=== PATIENT | male | born 1995 | race Caucasian/White ===

== ENCOUNTER 2024-09-21 17:51 | Emergency (ER) | payer BC, SELFPAY ==
--- OUTSIDE RECORDS SUMMARY | 2011-07-11 19:00 | XMS_ITS | Continuity of Care Document ---
[facility] Address [address] [place] [phone] Phone Care Team Providers Care Envelope Stamping Machine Operator Name Role Phone Gretchen Garza Unavailable Unavailable Advance Directives Directive Yes / No Effective Date File Name No Information Encounters Encounter Description Practice Location Reason(s) For Visit Diagnoses Date Provider Providers [facility] [address] [facility], [place], [place], [id number], [place] tel:[phone] [address] [place] [address] No Information 2 Charis Godinez. [address] [facility], [address], [place], [place], [id number], [place]. tel:[phone] Family History Family Member Type Diagnosis Age At Onset No Information Payers Payer name Insurance type Covered constitution party ID Authoriza tion(s) No Information Social History Type Description Quantity Date Captured Comments Sex Male Smoking Status No Information Chief Complaint And Reason For Visit No Information Reason For Referral Reason For Referral No Information History Of Present Illness Encounter Date Complaint History Of Prese nt Illness No Information Functional Status Date Functional Assessmen t No Information Instructions Date Instruction Additional Infor mation No Information Assessments Type Assessment Date No Information Patient Care Teams Name Effective Dates (start - stop) Status Members No Information
--- OUTSIDE RECORDS SUMMARY | 2021-07-10 10:15 | XMS_ITS | Continuity of Care Document ---
Author Organization [facility] Address [address] [facility] [place] [address] Phone Care Team Providers Care Applied Anthropologist Name Role Phone Mary GUTIERRES, Dayanna Unavailable Unavailable Allergies, Adverse Reactions, Alerts Substance Reaction Status Criticality No Known Allergies Active No Inform ation Medications Medication Instructions Dosage Effective Dates (start - stop) Status Comments Adderall 5 mg tablet take 1 tablet by oral route 2 times every day before breakfast and at noon 5 MG - Active azithromycin 500 mg tablet take 2 tablets (1000mg) by oral route today - No Longer Active Procedures Procedure Date OFFICE/OUTPATIENT VISIT, EST OFFICE/OUTPATIENT VISIT, NEW Advance Directives Directive Yes / No Effective Date File Name No Information Encounters Encounter Description Practice Location Reason(s) For Visit Diagnoses Date Provider Providers Copied on Encounter OFFICE/OUTPAT IENT VISIT, EST [facility], [address] [place], [place], [id number], [place] tel:[phone] [facility] Chlamydia Testing/Moustapha atment (chief complaint) High risk heterosexual behavior 2 Mary Alan. [address] [place] [address], [id number] , [place]. tel:[phone] Referring Provider: Dayanna Hernandez, [address] [place] [address], [address] . tel:[phone] OFFICE/OUTPAT IENT VISIT, NEW [facility], [facility] [place], [place], [id number], [place] tel:[phone] [facility] cold symptoms (chief complaint) Allergic rhinitis 2 Mary Alan. [address] [place], [place], [id number] , . tel:[phone] Referring Provider: Dayanna Hernandez, [address] [place], [address] . tel:[phone] Family History Family Member Type Diagnosis Age At Onset No Information Payers Payer name Insurance type Covered green party ID Authoriza tidel(s) [facility] [id number] BL [id number] Social History Type Description Quantity Date Captured Comments Alcohol Use Details Unknown Caffeine Use Details Unknown Tobacco Use Status No Information Smoking Status No Information Sex Male Vital Signs Date / Time: Height Weight BMI Pulse Rate Blood Pressure Temperature Respiratory Rate Body Surface Area Head Circumference Head Circ. Percentile Wt./Kendall. Percentile BMI percentile Pulse Ox Inhaled Ox 3:39 PM 72.00 in 92.533 kg (204.00 lbs) 27.6 7 kg/m eter (2) 105 /min 118/70 mm[Hg] 98.20 F 16 /min 98 % Chief Complaint And Reason For Visit From encounter dated '07/10/2021 15:15'. Chlamydia Testing/Treatment (chief complaint). Description: The symptoms began 2 months ago and generally lasts 2 Months. The symptoms are reported as being moderate. The symptoms occur daily. He states the symptoms are acute. Patient reported to urgent care for possible Chlamydia testing / treatment. Reported having sexual intercourse with someone in early May on 2021 who had tested positive for Chlamydia. Patient reported being tested today at [facility] but did not want to wait for the testing results prior to treatment. Patient denied any and all S/S consistent with STD infection. No other complaints and afebrile. Reason For Referral Reason For Referral No Information History Of Present Illness Encounter Date Complaint History Of Prese nt Illness Chlamydia Testing/Treatment The symptoms began 2 months ago and generally lasts 2 Months. The symptoms are reported as being moderate. The symptoms occur daily. He states the symptoms are acute. Patient reported to urgent care for possible Chlamydia testing / treatment. Reported having sexual intercourse with someone in early May on 2021 who had tested positive for Chlamydia. Patient reported being tested today at [facility] but did not want to wait for the testing results prior to treatment. Patient denied any and all S/S consistent with STD infection. No other complaints and afebrile. cold symptoms Onset: 2 Days. T he severity of the problem is mild. The problem has worsened. The symptoms are persistent. The patient denies aggravating factors. The patient denies relieving factors. Associated symptoms include cough, nasal congestion, otalgia, postnasal drainage and sinus pressure. Pertinent negatives include chills/rigors, dyspnea, facial pain, fatigue, fever, headache, hemoptysis, myalgia, pharyngitis, rash, rhinitis, sputum, tooth pain, wheezing or sneezing. Functional Status Date Functional Assessmen t Pain Score 0/10 Instructions Date Instruction Additional Infor julius --Azithromycin 1 g p .o. x1 --refrain from intercourse x1 week--Return to clinic as needed Related to High risk heterosexual behavior --Zyrtec daily and F lonase daily--Motrin or Tylenol as needed--Increase fluids and rest--Afrin, Sudafed, and Vicks VapoRub as needed--Return to clinic if today symptoms worsen or if new concerning symptoms present Related to Allergic rhinitis Assessments Type Assessment Date assessment High risk heterosexual behavior impression 26-year-old male pre sents to urgent care with concerns of exposure to chlamydia. Patient reports that he was notified recently of a partner that has chlamydia. Patient went to the [facility] today, was tested for chlamydia, but is refusing to wait for his results for treatment. Patient denies any current STI/UTI symptoms. Patient denies any prior history of STIs. Patient reports to partners, unprotected intercourse over the last 6 months. Upon exam, lungs clear throughout all rajan, heart regular, abdomen soft and nontender to palpation Mental Status Date Cognitive Assessment Orientation - [place] ed to time, place, person, situation. Patient Care Teams Name Effective Dates (start - stop) Status Members No Information
--- OUTSIDE RECORDS SUMMARY | 2024-02-17 05:45 | XMS_ITS | Continuity of Care Document ---
Author Organization [facility] Address [address] [place] [address] Phone Care Team Providers Care Supervisor Billposting Name Role Phone Billie Gibson Unavailable Unavailable Allergies, Adverse Reactions, Alerts Substance Reaction Status Criticality No Known Allergies Active No Inform ation Medications Medication Instructions Dosage Effective Dates (start - stop) Status Comments Truvada 200 mg-300 mg tablet take 1 tablet by oral route every day 1.00 tablet - Active Isentress 400 mg tablet take 1 tablet by oral route 2 times every day 400 MG - Active Procedures Procedure Date OFFICE/OUTPATIENT VISIT, EST OFFICE/OUTPATIENT VISIT, NEW Treatment Plan Completed Pt To Be Place On Recall Dental Prophylaxis Adult Periodontal Risk Assessment Caries Risk Assess & Doc Low Risk Oral Cancer Risk Assessment Comprehensive Oral Evaluation-New/Est Pt Intra-Oral - Complete Series Of Radiogra phic Images Dental Panoramic Radiographic Image Advance Directives Directive Yes / No Effective Date File Name No Information Encounters Encounter Description Practice Location Reason(s) For Visit Diagnoses Date Provider Providers Copied on Encounter [facility], [address], [place], [place], [id number] , [place] tel:[phone] [facility] No Information Karli Wise. [address], [place], [place], [id number], . tel:[phone] OFFICE/OUTPA TIENT VISIT, EST [facility], [address], [place], [place], [id number] , tel:[phone] [facility] needle stick (chief complaint) Contact with hypodermic needle, subsequent encounterEncount er for other specified prophylactic measures 4 [place]. [address], [place], [place], [address], [place]. tel:[phone] OFFICE/OUTPA TIENT VISIT, NEW [facility], [address], [place], [place], [id number] , tel: [phone] Urgent Care needlestick injury (chief complaint) Body mass index (BMI) 32.0-32.9, adultEncounter for sexually transmitted disease screeningContact with hypodermic needle, initial encounter 4 No Information [facility], [address], [place], [place], [id number] , tel:[phone] [facility] Encounter for other specified prophylactic measures 3 No Information Referring Provider: Angelic Bynum [address], [place], [address] . tel:[phone] [facility], [address], [place], [place], [id number] , tel:[phone] [facility] Encounter for dental exam and cleaning w/o abnormal findings 3 No Information Referring Provider: Angelic Bynum [address], [place], [address] . tel:[phone] Family History Family Member Type Diagnosis Age At Onset No Information Payers Payer name Insurance type Covered constitution party ID Charlene sanchez(s) [employer] [id number] Social History Type Description Quantity Date Captured Comments Sex Male Smoking Status No Information Chief Complaint And Reason For Visit No Information Reason For Referral Reason For Referral No Information Plan Of Treatment Date Type Action Status Nutrition Recommendation Nutrition therap y completed History Of Present Illness Encounter Date Complaint History Of Prese nt Illness needle stick 28 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 source pt was negative for HIV and Hepatitis. 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 when pt became confused and moved his arm to pull off maskpt's arm knocked into student dentist and he poked himself with a used gum suture needlewhen student dentist realized what happened, he stopped and removed gloves to wash hands rigorously with soap and waterpt has know significant previous medical hxpt is not on any medicinept had a tdap 2 years ago Functional Status Date Functional Assessmen t No Information Instructions Date Instruction Additional Infor julius Prescribed activity/ exercise education Related to Body mass index [BMI] 32.0-32.9, adult Assessments Type Assessment Date No Information Patient Care Teams Name Effective Dates (start - stop) Status Members No Information
[2024-09-21 17:58] VITALS: BP 160/101; PULSE 93; RESP 17; TEMP 36.3; O2SAT 100; BMI 30.5
[2024-09-21 18:14] LABS: Basophils # 0.1 10^3/uL (0.0-0.1); Basophils % 0.6 %; Eosinophils % 0.2 %; Hematocrit 49.3 % (37-53); Lymphocytes # 3.3 10^3/uL (0.8-4.8); Lymphocytes % 17.7 %; Mean Corpuscular HGB Conc 35.1 g/dL (30-55); Mean Corpuscular Hemoglobin 29.3 pg (27-33); Mean Corpuscular Volume 83.6 fl (82-101); Mean Platelet Volume 10.7 fL (7.4-10.4); Monocytes # 1.6 10^3/uL (0.2-0.9); Monocytes % 8.8 %; Neutrophils # 13.31 10^3/uL (1.8-7.7); Neutrophils % 72.3 %; Nucleated Red Blood Cells % 0 %; Platelet Count 351 10^3/cmm (157-399); Red Cell Distribution Width 12.5 % (12.1-15.1); White Blood Count 18.43 10^3/uL (3.29-11.43)
--- NOTE | 2024-09-21 18:19 | ED_ITS ---
HPI - General Adult 2 General: Chief complaint: General Medical Stated complaint: Heat Exh Time Seen by Provider: 09/21/24 17:54 History of Present Illness: Patient is a 29-year-old gentleman that was building fence yesterday and today, reports to ED by EMS with severe muscle cramping. He states his legs have been moving without him moving them, and has severe cramping. He admits to not hydrating enough today. He feels nauseated. He has never had muscle pain like this. He states its throughout his body arms, chest, abdomen, legs. Denies any actual chest pain, or shortness of breath. He is anxious regarding his cramping pain throughout his body. Associated symptoms: Reports nausea; Deny chest pain, dyspnea, headache(s), rash, palpitations or vomiting Related Data Allergies Allergy/AdvReac Type Severity Reaction Status Date / Time amoxicillin (From Augmentin) Allergy Unknown Verified 09/21/24 18:02 clavulanic acid (From Allergy Unknown Verified 09/21/24 18:02 Augmentin) Review of Systems 2 General: Reports: 10 or more systems reviewed and unremarkable except in HPI and below Const: Denies: fever(s) or chills Eyes: Denies: change in vision or blurry vision ENMT: Reports: dry mouth; Denies: throat pain or dental pain Card: Denies: chest pain or palpitations Resp: Denies: dyspnea or non-productive cough GI: Reports: nausea; Denies: abdominal pain or vomiting : Reports: difficulty urinating and oliguria; Denies: flank pain Musc: Reports: back pain, extremity pain, joint pain, joint stiffness, muscle cramps and muscle weakness; Denies: neck pain, extremity swelling or joint swelling Skin/Breast: Reports: pruritus; Denies: rash Neuro: Denies: headache(s) or numbness in extremities Psych: Denies: anxiety or depression Endo: Reports: polydipsia Physical Exam 2 Const: COMMON NORMALS: patient oriented x3 GENERAL APPEARANCE: cooperative, well kempt and in distress (due to pain) HENMT: COMMON NORMALS: normocephalic and atraumatic HEAD & SCALP: n ormocephalic and atraumatic Eye: COMMON NORMALS: Equal, round and reactive pupils present and EOMs intact bilaterally PUPIL: Yes Equal, round and reactive pupils present Neck/C-Spine: COMMON NORMALS: full ROM and no lymphadenopathy Lymph: LYMPHATIC: no lymphadenopathy noted Chest: COMMONS NORMALS: normal inspection of the chest and normal palpation of entire chest wall Resp: COMMON NORMALS: normal respiratory effort and No retractions Cardio: COMMON NORMALS: regular rate and regular rhythm RATE: regular rate RHYTHM: regular rhythm GI: COMMON NORMALS: Normal to inspection, nondistended, normoactive bowel sounds present and Soft to palpation PALPATION: Yes Soft to palpation : COMMON NORMALS: Yes no CVA tenderness BLADDER/KIDNEY EXAM: Yes no CVA tenderness Back/Pelvis: COMMON NORMALS: no CVA tenderness Extremity: COMMON NORMALS: normal to inspection, full ROM and capillary refill normal Neuro: COMMON NORMALS: patient oriented x3 and CN's II-XII intact bilaterally Psych: APPEARANCE: Yes well kempt Skin: COMMON NORMALS: no rashes or lesions noted and no wounds GENERAL SKIN EXAM: no rashes or lesions noted Course 2 Reevaluation(s): Reevaluation #1: Resolved per patient after approximately 0.5 of the first liter. He is improved after morphine and 1.5 L. Vital Signs: Vital signs: Vital Signs Temperature 97.4 F L 09/21/24 17:58 Pulse Rate 83 09/21/24 19:56 Respiratory Rate 16 09/21/24 19:56 Blood Pressure 139/89 09/21/24 19:56 Pulse Oximetry 99 09/21/24 19:56 Oxygen Delivery Me thod Room Air 09/21/24 19:36 [facility] - General Adult Medical Decision Making Patient is a 29-year-old male with severe muscle cramping with in the heat of greater than 90 degrees today building fence. This is significant for elevated CPK/rhabdomyolysis. Will obtain routine labs, place IV fluids, control pain, and await laboratory data for further decision-making. Initially, hemoglobin is already back and elevated, indicating a secondary polycythemia and hypovolemia. Most likely will need more than 1 L of fluid. Further decision making based on additional laboratory data. Urine myoglobin is not available at this facility, and therefore will order CPK instead. Patient does have elevation of creatinine to 2, metabolic acidosis of CO2 of 15, WBC of 18.4, hemoglobin of 17.3, and bilirubin 1.9. All significant for hypovolemia/dehydration/metabolic acidosis/ROSEMARIE/leukemoid reaction from his heat today. His CPK is 638, not reflecting rhabdomyolysis, however certainly as well goes with the above concerns of the patient. I have went over all of these with the patient. He has received 2 L IV fluids. I do believe this is acute due to the history. I have advised him to eat a meal tonight dense and potassium, repeat labs with a liver function/CMP/CBC in 1 week. Patient will increase fluid and electrolyte intake. And follow-up as noted. Of note, calcium is also elevated which is significant for hypovolemia/dehydration Lab Data 09/21/24 18:05 09/21/24 18:05 Laboratory Results WBC 18.43 10^3/uL (3.29-11.43) H 09/21/24 18:05 RBC 5.90 10^6/uL (3.85-5.65) H 09/21/24 18:05 Hgb 17.30 g/dL (11.27-16.99) H 09/21/24 18:05 Hct 49.3 % (37-53) 09/21/24 18:05 MCV 83.6 fl (82-101) 09/21/24 18:05 MCH 29.3 pg (27-33) 09/21/24 18:05 MCHC 35.1 g/dL (30-55) 09/21/24 18:05 RDW 12.5 % (12.1-15.1) 09/21/24 18:05 Plt Count 351 10^3/cmm (157-399) 09/21/24 18:05 MPV 10.7 fL (7.4-10.4) H 09/21/24 18:05 Neut % (Auto) 72.3 % 09/21/24 18:05 Lymph % (Auto) 17.7 % 09/21/24 18:05 [place] % (Auto) 8.8 % 09/21/24 18:05 Eos % (Auto) 0.2 % 09/21/24 18:05 Baso % (Auto) 0.6 % 09/21/24 18:05 Neut # (Auto) 13.31 10^3/uL (1.8-7.7) H 09/21/24 18:05 Lymph # (Auto) 3.3 10^3/uL (0.8-4.8) 09/21/24 18:05 [place] # (Auto) 1.6 10^3/uL (0.2-0.9) H 09/21/24 18:05 Eos # (Auto) 0.0 10^3/uL (0.0-0.8) 09/21/24 18:05 Baso # (Auto) 0.1 10^3/uL (0.0-0.1) 09/21/24 18:05 Nucleated RBC % (auto) 0 % 09/21/24 18:05 Nucleated RBCs # 0.0 /100WBC 09/21/24 18:05 Sodium 137 mmol/L (136-145) 09/21/24 18:05 Potassium 3.5 mmol/L (3.5-5.1) 09/21/24 18:05 Chloride 96 mmol/L (98-107) L 09/21/24 18:05 Carbon Dioxide 15 mmol/L (22-29) L 09/21/24 18:05 Anion Gap 29.5 (5-19) H 09/21/24 18:05 BUN 29 mg/dL (6-20) H 09/21/24 18:05 Creatinine 2.0 mg/dL (0.7-1.2) H 09/21/24 18:05 GFR Calculation 40.3 mL/min (90-130) L 09/21/24 18:05 Glucose 124 mg/dL (65-115) H 09/21/24 18:05 Calculated Osmolality 291 mOsm/kg (285-295) 09/21/24 18:05 Calcium 10.9 mg/dL (8.5-10.5) H 09/21/24 18:05 Magnesium 2.1 mg/dL (1.7-2.3) 09/21/24 18:05 Total Bilirubin 1.9 mg/dL (0.15-1.2) H 09/21/24 18:05 AST 32 U/L (0-40) 09/21/24 18:05 ALT 25 U/L (0-41) 09/21/24 18:05 Alkaline Phosphatase 99 U/L (40-130) 09/21/24 18:05 Creatine Kinase 638 U/L (39-308) H* 09/21/24 18:05 Total Protein 8.6 g/dL (6.6-8.7) 09/21/24 18:05 Albumin 5.4 g/dL (3.5-5.2) H 09/21/24 18:05 Globulin 3.2 g/dL (1.3-4.6) 09/21/24 18:05 No radiology studies performed this visit Discharge Plan Discharge Patient Disposition: Home Clinical Impression: ROSEMARIE (acute kidney injury), Metabolic acidosis, Leukemoid reaction, Elevated bilirubin, Elevated CPK Condition: Stable Discharge Orders: Discharge ED (Routine); Ordered 09/21/24 Ordered By: Nga Iyer Discharge Diet: Usual diet Discharge Activity: Resume usual activity Patient Instructions: Rhabdomyolysis (ED), Patient Portal & Norm Instructions Activity Restrictions/Additional Instructions: Repeat a CMP, CBC in 1 week Increase fluid intake/electrolytes/liquid IV as we discussed. Eat foods that are higher in potassium today. This does not need to continue throughout the week, just a normal diet. Return to ED for worsening cramping, fever Print Language: Portuguese Coding Level of Care Code ED Silk Snapper for Estela Hawley
[2024-09-21] MEDS: morphine 4 mg/mL SDV 1 mL IVP (18:25)
[2024-09-21] MEDS: ondansetron 2 mg/ML SDV 2 mL 4 MG IVP (18:25)
[2024-09-21] MEDS: sodium chloride 0.9% 1,000 ML 999 ML IV ×2 (18:25→18:51)
[2024-09-21] MEDS: diphenhydrAMINE 50 mg/mL SDV 1mL 25 MG IVP (18:25)
[2024-09-21 18:29] VITALS: BP 144/84; PULSE 79; RESP 16; O2SAT 100
[2024-09-21 18:32] LABS: Alanine Aminotransferase 25 U/L (0-41); Albumin Level 5.4 g/dL (3.5-5.2); Alkaline Phosphatase 99 U/L (40-130); Anion Gap 29.5 (5-19); Aspartate Amino Transferase 32 U/L (0-40); Blood Urea Nitrogen 29 mg/dL (6-20); Calcium 10.9 mg/dL (8.5-10.5); Carbon Dioxide 15 mmol/L (22-29); Chloride 96 mmol/L (98-107); Creatinine Clr Calc Pharmacy 68.5715; Globulin 3.2 g/dL (1.3-4.6); Glomerular Filtration Rate 40.3 mL/min (90-130); Glucose 124 mg/dL (65-115); Magnesium 2.1 mg/dL (1.7-2.3); Osmolality Calculated 291 mOsm/kg (285-295); Potassium 3.5 mmol/L (3.5-5.1); Sodium 137 mmol/L (136-145); Total Bilirubin 1.9 mg/dL (0.15-1.2); Total Protein 8.6 g/dL (6.6-8.7)
[2024-09-21 18:50] LABS: Creatine Phosphokinase 638 U/L (39-308)
[2024-09-21 19:36] VITALS: BP 154/80; PULSE 75; RESP 16; O2SAT 99
[2024-09-21 19:56] VITALS: BP 139/89; PULSE 83; RESP 16; O2SAT 99
== END 2024-09-21 19:56 | disposition home or self-care (01) ==
PROVIDERS: Emergency Provider Physician Assistant
DX: N17.9 Acute kidney failure, unspecified (principal); E87.20 Acidosis, unspecified; D72.823 Leukemoid reaction; E80.7 Disorder of bilirubin metabolism, unspecified; R74.8 Abnormal levels of other serum enzymes
CPT/HCPCS: 80053; 82550; 83735; 85025; 96374; 96375; 99284; J1200; J2270; J2405; J7030